=== PATIENT | female | born 1985 | race Caucasian/White ===

== ENCOUNTER 2020-07-24 16:01 | Emergency (ER) | payer OTHER, SELFPAY ==
[2020-07-24 16:16] VITALS: BP 127/95; PULSE 83; RESP 16; TEMP 36.6; O2SAT 100
--- NOTE | 2020-07-24 16:18 | ED.WOUNDLAC ---
HPI - Wound/Laceration General Chief Complaint: Wound/Laceration Stated Complaint: lt heel laceration Time Seen by Provider: 07/24/20 16:18 Source: patient and RN notes reviewed Mode of arrival: ambulatory Limitations: no limitations History of Present Illness HPI narrative: 34 year old female who presents to [facility] with complaints of cutting the bottom of her left heel on metal strip on stairs causing avulsion of skin from her heel. Patient states that her tetanus shot is not up to date. Patient has moderate amount of bleeding noted from heel area with noted avulsion but no puncture type of wound or any measurable depth of wound. Wound noted to be 3cm length shaped like triangle with widest area 1cm and no measurable depth. Patient has full circulation, sensation and mobility to her left foot. Onset (ago): hour(s) (within past hour prior to arrival) Location: other (bottom of left heel) Place: home Patient tetanus UTD: No Context: accidental Associated symptoms: none Treatments prior to arrival: bandage Related Data Allergies Allergy/AdvReac Type Severity Reaction Status Date / Time No Known Allergies Allergy Verified 07/24/20 16:12 Review of Systems Review of Systems: Narrative: CONSTITUTIONAL: Denies fever, chills, or sweats. EYES: Denies visual changes, redness, or discharge. ENT: Denies rhinorrhea, congestion, sore throat, or otalgia. CARDIOVASCULAR: Denies chest pain, palpitations, or edema. RESPIRATORY: Denies cough or dyspnea. GASTROINTESTINAL: Denies abdominal pain, nausea, vomiting, or diarrhea. GENITOURINARY: Denies dysuria or hematuria. SKIN: Denies rash or itching,positive for avulsion of skin from the bottom of her left heel MUSCULOSKELETAL: Denies back pain, joint pain, or myalgia. NEUROLOGIC: Denies headache, numbness, or weakness. PSYCHIATRIC: Denies anxiety or depression. All systems reviewed & are unremarkable except as noted in HPI and below PMFSH Past Medical History Medical History (Updated 07/24/20 @ 16:54 by Viry Ceja NP) Exercise-induced asthma Strep pharyngitis Surgical History Surgical History (Updated 07/24/20 @ 17:05 by Viry Ceja NP) Previous section S/P excision of lipoma shoulder Family History Family History (Updated 07/24/20 @ 16:57 by Viry Ceja NP) Other No significant family history Social History Social History (Updated 07/24/20 @ 16:56 by Viry Ceja NP) Smoking status: Former smoker Smoking end date: 07/01/04 Alcohol intake: current Alcohol use details: social Substance use: never Living arrangements: with family Gender identity (if verbalized by the patient): Female Comments At time of signature, agree with nursing past medical, surgical, social and family history. There is no relevant family history pertinent to the presenting complaint Exam Narrative: Exam Narrative: GENERAL: Well-appearing, well-nourished, and in no acute distress. HEAD: Normocephalic, atraumatic. EYES: PERRLA and EOMI. ENT: Nares clear, no rhinorrhea or epistaxis. Mucous membranes moist. NECK: Supple.no lymphadenopathy CHEST: Clear to auscultation. No respiratory distress.SAO2 100% on room air. HEART: Regular rate and rhythm. No murmur heard. Normal peripheral pulses. ABDOMEN: Soft, nontender, nondistended, normal active bowel sounds. EXTREMITIES: Normal range of motion. No edema. SKIN: Warm, dry, no rash. Avulsion to bottom of her left heel shape of triangle with length 3cm and widest area 1 cm, no measurable depth, no puncture wound noted inside avulsion with bleeding controlled with pressure to heel, Circulation, sensation and mobility intact to her foot NEURO: No focal deficits. Alert and oriented x3. Course Vital Signs Vital signs: Vital Signs Temperature 36.6 C 07/24/20 16:16 Pulse Rate 83 07/24/20 16:16 Respiratory Rate 16 07/24/20 16:16 Blood Pressure 127/95 H 07/24/20 16:16 Pulse Oximetry 100 01
[2020-07-24] MEDS: TETANUS,DIPHTHERIA,AC PERTUSSIS ADULT (0.5 ML) BOOSTRIX IM (16:23)
== END 2020-07-24 16:53 | disposition home or self-care (01) ==
PROVIDERS: Emergency Provider Registered Nurse
DX: S91.302A Unspecified open wound, left foot, initial encounter (principal); W45.8XXA Other foreign body or object entering through skin, initial encounter; Z23 Encounter for immunization; J45.990 Exercise induced bronchospasm; Z87.891 Personal history of nicotine dependence
CPT/HCPCS: 90471; 90715; 99213; G0463

== ENCOUNTER 2021-01-19 18:40 | Emergency (ER) | payer OTHER, SELFPAY ==
[2021-01-19 18:48] VITALS: BP 113/86; PULSE 67; RESP 12; TEMP 37.3; O2SAT 100
--- NOTE | 2021-01-19 18:49 | ED.URI ---
HPI - URI/Sore Throat General Chief Complaint: Upper Respiratory Infection Stated Complaint: sore throat/fatigue Source: patient and RN notes reviewed Mode of arrival: ambulatory History of Present Illness HPI Narrative: This is a 35-year-old female that presented to urgent care with complaints of sore throat, headache, lightheadedness and fatigue that started today. According to patient her boyfriend was tested for Covid yesterday and his results were negative. Patient notes that she has a 5-year-old and she wants to make sure she does not have strep or Covid. She also noted that she felt as if she had a subjective fever but when she took her temperature she did not have a fever. The patient denies SOB, CP, palpitation, extremity numbness, lightheadedness, dizziness, constipation, diarrhea, chills, or fever. Covid and strep test negative reviewed Related Data Home Medications Medication Instructions Recorded Confirmed norethindrone ac-eth estradiol tablet 01/19/21 Allergies Allergy/AdvReac Type Severity Reaction Status Date / Time No Known Allergies Allergy Verified 01/19/21 18:46 Review of Systems Review of Systems: Narrative: A 14 organ system Review of Systems was performed and pertinent positives included in the HPI, otherwise remaining ROS is negative. All systems reviewed & are unremarkable except as noted in HPI and below PMFSH Past Medical History Medical History (Updated 01/19/21 @ 19:05 by ROHIT Montero) Exercise-induced asthma Strep pharyngitis Surgical History Surgical History (Updated 07/24/20 @ 17:05 by Viry Ceja NP) Previous section S/P excision of lipoma shoulder Family History Family History (Updated 07/24/20 @ 16:57 by Viry Ceja NP) Other No significant family history Social History Social History (Updated 07/24/20 @ 16:56 by Viry Ceja NP) Smoking status: Former smoker Smoking end date: 07/01/04 Alcohol intake: current Alcohol use details: social Substance use: never Gender identity (if verbalized by the patient): Female Exam Narrative: Exam Narrative: GENERAL: This is a well-nourished, well-developed patient, in no apparent distress. HEAD: normocephalic, atraumatic. EYES: PERRL. Sclera clear/white. Vision is grossly intact. EARS: External ears normal, auditory canals clear and without drainage, TMs normal without perforation. Hearing grossly intact. NOSE: External nose normal with no obvious nasal discharge, nares without redness, no rhinorrhea. THROAT: Mucous membranes moist, posterior pharynx clear. NECK: Neck supple, non-tender without lymphadenopathy, masses or thyromegaly. CARDIOVASCULAR: Regular rate and rhythm without murmurs, gallops, or rubs. RESPIRATORY: Clear to auscultation. Breath sounds equal bilaterally. No wheezes, rales, or rhonchi. GASTROINTESTINAL: Abdomen soft, non-tender, nondistended. Bowel sounds are active. No hepato-splenomegaly, or palpable masses. No guarding. SKIN: warm, intact with no suspicious lesions or rash, good texture and turgor. NEURO: awake, alert, and oriented to person, place and time. There were no obvious focal neurologic abnormalities. Steady gait EXTREMITIES: Normal range of motion. No edema. No calf tenderness. Negative Homans sign bilaterally. BACK: Nontender without deformity or crepitance. No flank tenderness. Course Vital Signs Vital signs: Vital Signs Temperature 99.1 F 01/19/21 18:48 Pulse Rate 67 01/19/21 18:48 Respiratory Rate 12 01/19/21 18:48 Blood Pressure 113/86 01/19/21 18:48 Pulse Oximetry 100 01/19/21 18:48 Temperature 99.1 F 01/19/21 18:48 Pulse Rate 67 01/19/21 18:48 Respiratory Rate 12 01/19/21 18:48 Blood Pressure 113/86 01/19/21 18:48 Pulse Oximetry 100 01/19/21 18:48 MDM - URI/Sore Throat Differential Diagnosis Differential diagnosis: Likely upper respiratory infection, bronchitis and pharyngit
== END 2021-01-19 19:20 | disposition home or self-care (01) ==
PROVIDERS: Emergency Provider Nurse Practitioner
DX: J06.9 Acute upper respiratory infection, unspecified (principal); Z20.822 Contact with and (suspected) exposure to COVID-19; Z87.891 Personal history of nicotine dependence; J45.990 Exercise induced bronchospasm
CPT/HCPCS: 87081; 87426; 87880; 99213; C9803; G0463

== ENCOUNTER 2022-09-21 08:58 | Outpatient (CLI) | payer OTHER, SELFPAY ==
--- NOTE | 2022-09-25 16:18 | WPDHOLTEREM ---
Holter/Event Monitor Holter/Event Monitor Date of procedure: 09/21/22 Holter/Event Procedure: 48 Hr Holter Monitor Indications: Cardiac arrhythmia Conclusion: 1. 48 hour holter monitor on 09/21/22. 2. Predominant rhythm is sinus rhythm. HR range 51-135 bpm; average HR 81 bpm. 3. There are 5,216 premature supraventricular complexes, 930 supraventricular couplets, 149 supraventricular bigeminy and 31 supraventricular trigeminy. There are 597 episodes of atrial tachycardia, fastest at 128 bpm and longest lasting 7 beats. 4. There are 7 premature ventricular complexes and 1 ventricular couplet and 1 ventricular triplet. No ventricular tachycardia. 5. No sinoatrial or atrioventricular blocks. No significant pauses greater than 2 seconds. 6. Patient reports symptoms of dizziness, rapid heart beat which demonstrate sinus rhythm, HR range 76-88 bpm and two with PAC's.
== END 2022-09-21 08:59 | disposition home or self-care (01) ==
LOC: ANHCARD 08:59
PROVIDERS: PCP Family Medicine; Visit Provider Family Medicine
DX: I49.9 Cardiac arrhythmia, unspecified (principal)
CPT/HCPCS: 93225; 93226

== ENCOUNTER 2023-03-26 10:26 | Outpatient (CLI) | payer OTHER, SELFPAY ==
[2023-03-30 10:25] LABS: Progesterone 13.8 ng/mL (***)
== END 2023-03-26 10:27 | disposition home or self-care (01) ==
LOC: ANHLAB 10:28
PROVIDERS: PCP Family Medicine; Visit Provider Obstetrics & Gynecology
DX: N92.6 Irregular menstruation, unspecified (principal)
CPT/HCPCS: 36415; 84144

== ENCOUNTER 2023-08-02 08:22 | Outpatient (CLI) | payer OTHER, SELFPAY ==
--- NOTE | ~2023-08-02 | MMUS_ITS ---
EXAMINATION: MM diagnostic tameka BI w amador, US breast BI complete HISTORY: Palpable right breast lump TECHNIQUE: Additional 3-D tomosynthesis images of the breasts were performed and synthetic 2-D images were generated. CAD analysis was submitted and interpreted. High resolution complete bilateral breas t ultrasound was performed. COMPARISON: None BREAST PARENCHYMAL COMPOSITION: Dense: The breasts are extremely dense, which lowers the sensitivity of mammography. FINDINGS: MAMMOGRAPHIC FINDINGS: There are no suspicious masses, calcifications or architectural distortion in either breast to sugges t malignancy. ULTRASOUND: Complete bilateral US of all 4 quadrants of the breasts and retroareolar region was reviewed. Normal heterogeneous echotexture without focal solid or cystic mass. IMPRESSION: 1. No evidence for malignancy in either breast. 2. Routine yearly screening mammogram and regular clinical breast examination are recommended. BI-RADS Category 1: Negative Reviewed, dictated and finalized at location [facility] IMPRESSION: 1. No evidence for malignancy in either breast. 2. Routine yearly screening mammogram and regular clinical breast examination a re recommended. BI-RADS Category 1: Negative
== END 2023-08-02 08:23 ==
LOC: MICIMG 08:23
PROVIDERS: PCP Family Medicine; Visit Provider Family Medicine
DX: N63.0 Unspecified lump in unspecified breast (principal)
CPT/HCPCS: 76641; 77062; 77066; G0279